=== PATIENT | male | born 1960 | race Caucasian/White ===

== ENCOUNTER 2017-08-01 09:52 | Inpatient (IN) | payer MEDICARE, MEDICAID ==
[~2017-08-01] VITALS: Ht 185.4 cm; Wt 74.8 kg
[~2017-08-01 09:52] MED LIST: CEPH-571 PO; DOXY100C43 PO; HYDR-569 PO; NO HOME MEDS
[2017-08-01] MEDS ORDERED: normal saline 1000ML IV soln IV ONE (10:30)
[2017-08-01] MEDS ORDERED: cefTRIAXone 1g/NS 100ml IVPB 100 ML IV ONE (10:35)
[2017-08-01] MEDS ORDERED: vancomycin/NS 1 GM ADD-VANTAGE 250 ML IV ONE (10:45)
[2017-08-01 11:32] LABS: BASOPHILS % (AUTO) 0.4 % (0-1); EOSINOPHILS # (AUTO) 0.1 X10'3 (0-0.9); EOSINOPHILS % (AUTO) 1.7 % (0-6); HEMATOCRIT 43.2 % (42.0-52.0); HEMOGLOBIN 15.1 g/dl (14.0-17.9); LYMPHOCYTES # (AUTO) 1.5 X10'3 (1.1-4.8); MEAN CORPUSCULAR HEMOGLOBIN 32.3 PG (27.0-31.0); MEAN CORPUSCULAR HGB CONC 34.9 % (33.0-36.5); MEAN CORPUSCULAR VOLUME 92.6 FL (78-98); MEAN PLATELET VOLUME 7.1 FL (7.4-10.4); MONOCYTES # (AUTO) 0.6 X10'3 (0-0.9); MONOCYTES % (AUTO) 9.9 % (2-12); NEUTROPHILS # (AUTO) 3.8 X10'3 (1.8-7.7); PLATELET COUNT 310 X10'3 (140-440); RED BLOOD COUNT 4.67 X10'6 (4.70-6.10); RED CELL DISTRIBUTION WIDTH 13.3 % (11.5-14.5)
[2017-08-01 11:33] LABS: CLARITY,URINE Clear (Clear); COLOR,URINE Yellow (Yellow); GLUCOSE, URINE Negative (Neg); KETONES,URINE Negative (Neg); LEUKOCYTE ESTERASE ,URINE Negative (Neg); NITRITES, URINE Negative (Neg); OCCULT BLOOD,URINE Negative (Neg); PROTEIN,URINE Negative (Neg)
[2017-08-01 11:34] LABS: UA COLLECTION TYPE CLN CATCH MIDSTREAM
[2017-08-01 11:44] LABS: INR 0.9 INR; PARTIAL THROMBOPLASTIN TIME 28 SECONDS (22-32); PROTHROMBIN TIME 9.8 SECONDS (9.0-12.0)
[2017-08-01 11:47] LABS: ALANINE AMINOTRANSFERASE 32 U/L (12-78); ALBUMIN 3.3 G/DL (3.4-5.0); ALBUMIN/GLOBULIN RATIO 0.7 (1.1-1.5); ALKALINE PHOSPHATASE 96 IU/L (46-116); ANION GAP 13 (8-16); ASPARTATE AMINO TRANSFERASE 24 U/L (10-37); BILIRUBIN,TOTAL 0.3 MG/DL (0.1-1.0); BLOOD UREA NITROGEN 11 MG/DL (7-18); BUN/CREATININE RATIO 13.8 (5.4-32.0); CALCIUM 8.9 MG/DL (8.5-10.1); CHLORIDE 102 MMOL/L (99-107); GLUCOSE 100 MG/DL (70-104); MAGNESIUM 1.6 MG/DL (1.5-2.4); SODIUM 141 MMOL/L (135-145); TOTAL CARBON DIOXIDE 26.4 MMOL/L (24-32); TOTAL PROTEIN 7.9 G/DL (6.4-8.2); eGFR > 90 ML/MIN
[2017-08-01] MEDS ORDERED: morphine 2 MG/ML inj. syringe IV PRN (12:50)
[2017-08-01] MEDS ORDERED: magnesium hydroxide 30ml (MOM) UD suspension PO PRN (12:50)
[2017-08-01] MEDS ORDERED: ondansetron/PF 4mg/2ml inj IV PRN (12:50)
[2017-08-01] MEDS ORDERED: acetaminophen 325mg tablet PO PRN (12:50)
[2017-08-01] MEDS ORDERED: mag hydrox/Alum hydrox/simeth 30ml oral suspension PO PRN (12:50)
[2017-08-01] MEDS: normal saline 1000ml 1,000 ML IV SCH ×2 (13:01→23:56)
[2017-08-01 14:10] VITALS: BP 134/79
[2017-08-01] MEDS: morphine 2 MG/ML inj. syringe IV PRN ×2 (14:30→19:13)
[2017-08-01] MEDS ORDERED: famotidine 20mg tablet PO ONE (16:10)
[2017-08-01] MEDS: nicotine 14mg patch - 24hr TD SCH (16:34)
[2017-08-01] MEDS: HYDROcodone/acetaminophen 5mg/325mg tablet PO PRN (16:34)
[2017-08-01 18:00] VITALS: BP 130/82
[2017-08-01] MEDS ORDERED: pneumococcal 23-VAL P-sac vacc 25 mcg/0.5ml vial IMVAC ONE (18:15)
[2017-08-01] MEDS: vancomycin/NS 1 GM ADD-VANTAGE 250 ML IV SCH (19:13)
[2017-08-01 22:00] VITALS: BP 108/67
[2017-08-02] VITALS (11 sets, daily range): BP systolic 119–154; BP diastolic 71–98
[2017-08-02] MEDS: vancomycin/NS 1 GM ADD-VANTAGE 250 ML IV SCH ×2 (02:59→11:40)
[2017-08-02] MEDS: HYDROcodone/acetaminophen 5mg/325mg tablet PO PRN (05:55)
[2017-08-02] MEDS ORDERED: vancomycin 1,000mg inj ONE (07:32)
[2017-08-02] MEDS ORDERED: BUPIVAcaine/PF 2.5 mg/ml (0.25%) 30ml vial ONE (07:32)
[2017-08-02 07:37] LABS: BASOPHILS % (AUTO) 0.5 % (0-1); EOSINOPHILS # (AUTO) 0.2 X10'3 (0-0.9); EOSINOPHILS % (AUTO) 3.5 % (0-6); HEMATOCRIT 39.3 % (42.0-52.0); HEMOGLOBIN 13.6 g/dl (14.0-17.9); LYMPHOCYTES # (AUTO) 1.6 X10'3 (1.1-4.8); LYMPHOCYTES % (AUTO) 25.3 % (21-51); MEAN CORPUSCULAR HEMOGLOBIN 32.3 PG (27.0-31.0); MEAN CORPUSCULAR HGB CONC 34.7 % (33.0-36.5); MEAN CORPUSCULAR VOLUME 93.2 FL (78-98); MEAN PLATELET VOLUME 6.9 FL (7.4-10.4); MONOCYTES # (AUTO) 0.6 X10'3 (0-0.9); MONOCYTES % (AUTO) 10.2 % (2-12); NEUTROPHILS # (AUTO) 3.7 X10'3 (1.8-7.7); NEUTROPHILS % (AUTO) 60.5 % (42-75); PLATELET COUNT 298 X10'3 (140-440); RED BLOOD COUNT 4.22 X10'6 (4.70-6.10); RED CELL DISTRIBUTION WIDTH 13.2 % (11.5-14.5); WHITE BLOOD COUNT 6.2 X10'3 (4.5-11.0)
[2017-08-02] MEDS: nicotine 14mg patch - 24hr TD SCH (07:40)
[2017-08-02 07:53] LABS: ALBUMIN 2.7 G/DL (3.4-5.0); ANION GAP 9 (8-16); BLOOD UREA NITROGEN 8 MG/DL (7-18); BUN/CREATININE RATIO 9.4 (5.4-32.0); CALCIUM 8.2 MG/DL (8.5-10.1); CHLORIDE 105 MMOL/L (99-107); CREATININE 0.85 MG/DL (0.60-1.10); GLUCOSE 99 MG/DL (70-104); POTASSIUM 3.8 MMOL/L (3.5-5.1); SODIUM 140 MMOL/L (135-145); eGFR > 90 ML/MIN
[2017-08-02] MEDS ORDERED: meperidine/PF 50mg/ml syringe IV PRN ×3 (09:00)
[2017-08-02] MEDS ORDERED: morphine 2 MG/ML inj. syringe IV PRN ×2 (09:00)
[2017-08-02] MEDS ORDERED: proCHLORperazine 10 MG/2 ml inj IV PRN (09:00)
[2017-08-02] MEDS ORDERED: ondansetron/PF 4mg/2ml inj IV PRN (09:00)
[2017-08-02] MEDS ORDERED: ringers solution, lacted 1,000 ML IV SCH (09:00)
[2017-08-02] MEDS ORDERED: fentaNYL/PF 50MCG/1 ML 2ML syringe ONE (09:05)
[2017-08-02] MEDS ORDERED: midazolam 2 mg/2 ml injection ONE (09:09)
[2017-08-02] MEDS ORDERED: LIDOcaine 2% (20mg/ml) 5ml vial ONE (09:12)
[2017-08-02] MEDS ORDERED: propofol inj 20 ML IV ONE (09:12)
[2017-08-02] MEDS ORDERED: ondansetron/PF 4mg/2ml inj ONE (09:21)
[2017-08-02] MEDS ORDERED: dexamethasone sod phosphate 4mg/ml inj. ONE (09:21)
[2017-08-02] MEDS ORDERED: VANCOMYCIN LEVEL IV NR (10:30)
[2017-08-02] MEDS: normal saline 1000ml 1,000 ML IV SCH (10:45)
[2017-08-02] MEDS ORDERED: lactobacillus rhamnosus 10,000 MMU CELLS/CAPSULE PO SCH (17:30)
[2017-08-02] MEDS ORDERED: vancomycin inj 1,250 MG in normal saline 250ml IV soln 250 ML IV SCH (19:00)
[2017-08-03] MEDS ORDERED: VANCOMYCIN LEVEL IV NR (18:30)
[2017-08-04] MEDS ORDERED: pneumococcal 23-VAL P-sac vacc 25 mcg/0.5ml vial IMVAC ONE (10:00)
== END 2017-08-02 14:45 | disposition left against medical advice (07) | DRG 854 ==
LOC: ER 09:53 → ED HOLD 12:49 → EDBEDREQ 13:48 → ORTHO 4S 14:08
PROVIDERS: ADMIT Family Medicine; ATTEND Family Medicine
PROC: 0X9K0ZZ Drainage of Left Hand, Open Approach (ICD-10-PCS; 2017-08-02)
PROC: 0LD80ZZ Extraction of Left Hand Tendon, Open Approach (ICD-10-PCS; principal; 2017-08-02 08:58)
DX: A41.9 Sepsis, unspecified organism (principal); L03.114 Cellulitis of left upper limb; E78.00 Pure hypercholesterolemia, unspecified; L02.512 Cutaneous abscess of left hand; R65.20 Severe sepsis without septic shock; M65.842 Other synovitis and tenosynovitis, left hand; G89.29 Other chronic pain; M54.9 Dorsalgia, unspecified; Z53.21 Procedure and treatment not carried out due to patient leaving prior to being seen by health care provider; F17.210 Nicotine dependence, cigarettes, uncomplicated; Z79.4 Long term (current) use of insulin; Z83.3 Family history of diabetes mellitus; Z91.19 Patient's noncompliance with other medical treatment and regimen; Z88.2 Allergy status to sulfonamides; Z88.1 Allergy status to other antibiotic agents; Z88.8 Allergy status to other drugs, medicaments and biological substances
CPT/HCPCS: 36415; 80048; 80053; 80202; 81003; 83605; 83735; 84145; 85025; 85610; 85730; 87040; 87070; 93005; 96361; 96365; 96366; 96368; 99285; A6222; A6446; A6449; A7000; J0696; J1100; J2001; J2250; J2270; J2405; J2704; J3010; J3370; J3490; J7030; J7120

== ENCOUNTER 2017-10-31 11:34 | Emergency (ER) | payer MEDICARE, MEDICAID ==
[~2017-10-31] VITALS: Ht 182.9 cm; Wt 73.0 kg
[~2017-10-31 11:34] MED LIST changes: -DOXY100C43 PO
[2017-10-31 12:10] VITALS: BP 138/85
[2017-10-31] MEDS ORDERED: SULF1TAB49 PO (12:57)
[2017-10-31] MEDS ORDERED: HYDR-3965 PO (12:57)
[2017-10-31] MEDS ORDERED: MUPI22OI30 TOP (12:57)
== END 2017-10-31 13:24 | disposition home or self-care (01) ==
LOC: ER 11:35
DX: L02.416 Cutaneous abscess of left lower limb (principal); G89.29 Other chronic pain; Z88.8 Allergy status to other drugs, medicaments and biological substances; Z79.899 Other long term (current) drug therapy
CPT/HCPCS: 99283; 99284

== ENCOUNTER 2018-05-26 13:51 | Emergency (ER) | payer MEDICAID, MEDICARE ==
[~2018-05-26] VITALS: Ht 182.9 cm; Wt 82.0 kg
[~2018-05-26 13:51] MED LIST changes: +HYDR-4383 PO; -HYDR-569 PO
[2018-05-26 13:53] VITALS: BP 128/88
== END 2018-05-26 17:14 | disposition left against medical advice (07) ==
LOC: ER 13:52
DX: L02.413 Cutaneous abscess of right upper limb (principal); Z53.21 Procedure and treatment not carried out due to patient leaving prior to being seen by health care provider

== ENCOUNTER 2018-11-23 15:18 | Emergency (ER) | payer MEDICARE ==
[~2018-11-23] VITALS: Ht 182.9 cm; Wt 81.8 kg
[2018-11-23] MEDS ORDERED: normal saline 1000ML IV soln IVB ONE (15:35)
[2018-11-23 15:51] LABS: BASOPHILS # (AUTO) 0.1 X10'3 (0-0.2); BASOPHILS % (AUTO) 1.1 % (0-1); EOSINOPHILS # (AUTO) 0.2 X10'3 (0-0.9); EOSINOPHILS % (AUTO) 2.6 % (0-6); HEMATOCRIT 47.2 % (42.0-52.0); HEMOGLOBIN 16.1 g/dl (14.0-17.9); LYMPHOCYTES # (AUTO) 2.4 X10'3 (1.1-4.8); LYMPHOCYTES % (AUTO) 27.8 % (21-51); MEAN CORPUSCULAR HGB CONC 34.1 g/dL (33.0-36.5); MEAN CORPUSCULAR VOLUME 93.9 FL (78-98); MEAN PLATELET VOLUME 7.1 FL (7.4-10.4); MONOCYTES # (AUTO) 0.8 X10'3 (0-0.9); MONOCYTES % (AUTO) 9.7 % (2-12); NEUTROPHILS % (AUTO) 58.8 % (42-75); PLATELET COUNT 309 X10'3 (140-440); RED BLOOD COUNT 5.03 X10'6 (4.70-6.10); RED CELL DISTRIBUTION WIDTH 13.1 % (11.5-14.5); WHITE BLOOD COUNT 8.5 X10'3 (4.5-11.0)
[2018-11-23 16:09] LABS: ALANINE AMINOTRANSFERASE 75 U/L (12-78); ALBUMIN 4.1 G/DL (3.4-5.0); ALBUMIN/GLOBULIN RATIO 0.9 (1.1-1.5); ALKALINE PHOSPHATASE 121 IU/L (46-116); ANION GAP 12 (8-16); ASPARTATE AMINO TRANSFERASE 53 U/L (10-37); BILIRUBIN,TOTAL 0.4 MG/DL (0.1-1.0); BLOOD UREA NITROGEN 18 MG/DL (7-18); BUN/CREATININE RATIO 15.8 (5.4-32.0); CALCIUM 9.2 MG/DL (8.5-10.1); CHLORIDE 104 MMOL/L (99-107); CREATINE KINASE 151 U/L (39-308); CREATININE 1.14 MG/DL (0.60-1.10); GLUCOSE 69 MG/DL (70-104); POTASSIUM 3.8 MMOL/L (3.5-5.1); SODIUM 139 MMOL/L (135-145); TOTAL CARBON DIOXIDE 22.6 MMOL/L (24-32); TOTAL PROTEIN 8.6 G/DL (6.4-8.2); eGFR 66 ML/MIN
[2018-11-23 16:41] VITALS: BP 107/67
[2018-11-24] MEDS ORDERED: ASPI-1265 PO (13:49)
== END 2018-11-23 16:42 ==
LOC: ER 15:18
DX: G40.909 Epilepsy, unspecified, not intractable, without status epilepticus (principal); K21.9 Gastro-esophageal reflux disease without esophagitis; Z76.5 Malingerer [conscious simulation]; G89.29 Other chronic pain; Z86.14 Personal history of Methicillin resistant Staphylococcus aureus infection; Z88.1 Allergy status to other antibiotic agents; Z88.8 Allergy status to other drugs, medicaments and biological substances
CPT/HCPCS: 36415; 80053; 82550; 85025; 99283; J7030

== ENCOUNTER 2018-11-24 12:51 | Inpatient (IN) | payer MEDICARE, OTHER ==
[~2018-11-24] VITALS: Ht 185.4 cm; Wt 79.5 kg
--- NOTE | 2018-11-24 13:15 | NUR ---
PT TO CT VIA [facility]
[2018-11-24 13:19] LABS: BASOPHILS # (AUTO) 0.1 X10'3 (0-0.2); BASOPHILS % (AUTO) 1.2 % (0-1); EOSINOPHILS # (AUTO) 0.2 X10'3 (0-0.9); EOSINOPHILS % (AUTO) 2.9 % (0-6); HEMATOCRIT 45.6 % (42.0-52.0); HEMOGLOBIN 15.7 g/dl (14.0-17.9); LYMPHOCYTES # (AUTO) 1.7 X10'3 (1.1-4.8); LYMPHOCYTES % (AUTO) 25.2 % (21-51); MEAN CORPUSCULAR HGB CONC 34.4 g/dL (33.0-36.5); MEAN CORPUSCULAR VOLUME 93.1 FL (78-98); MEAN PLATELET VOLUME 7.2 FL (7.4-10.4); MONOCYTES # (AUTO) 0.7 X10'3 (0-0.9); MONOCYTES % (AUTO) 10.9 % (2-12); NEUTROPHILS # (AUTO) 4.1 X10'3 (1.8-7.7); NEUTROPHILS % (AUTO) 59.8 % (42-75); PLATELET COUNT 303 X10'3 (140-440); RED BLOOD COUNT 4.89 X10'6 (4.70-6.10); RED CELL DISTRIBUTION WIDTH 12.8 % (11.5-14.5); WHITE BLOOD COUNT 6.8 X10'3 (4.5-11.0)
--- NOTE | 2018-11-24 13:21 | NUR ---
PT BACK FROM CT [facility]IA [facility]
[2018-11-24 13:27] LABS: PARTIAL THROMBOPLASTIN TIME 30 SECONDS (22-32)
[2018-11-24 13:29] LABS: ALANINE AMINOTRANSFERASE 69 U/L (12-78); ALBUMIN 3.5 G/DL (3.4-5.0); ALBUMIN/GLOBULIN RATIO 0.8 (1.1-1.5); ALKALINE PHOSPHATASE 113 IU/L (46-116); ANION GAP 7 (8-16); ASPARTATE AMINO TRANSFERASE 44 U/L (10-37); BILIRUBIN,TOTAL 0.5 MG/DL (0.1-1.0); BLOOD UREA NITROGEN 20 MG/DL (7-18); BUN/CREATININE RATIO 22.5 (5.4-32.0); CALCIUM 8.8 MG/DL (8.5-10.1); CHLORIDE 102 MMOL/L (99-107); CREATININE 0.89 MG/DL (0.60-1.10); GLUCOSE 92 MG/DL (70-104); POTASSIUM 4.1 MMOL/L (3.5-5.1); SODIUM 135 MMOL/L (135-145); TOTAL CARBON DIOXIDE 25.8 MMOL/L (24-32); TOTAL PROTEIN 7.7 G/DL (6.4-8.2); eGFR 87 ML/MIN
[2018-11-24 13:33] LABS: TROPONIN I < 0.04 NG/ML (0.0-0.05)
[2018-11-24] MEDS ORDERED: ASPI-1265 PO (13:49)
[2018-11-24] MEDS ORDERED: acetaminophen 325mg tablet PO PRN (15:15)
[2018-11-24] MEDS ORDERED: potassium Cl 40MEQ/NS 500ml 500 ML IV PRN (15:15)
[2018-11-24] MEDS ORDERED: potassium CL 10mEq/100ml bag 100 ML IV PRN (15:15)
[2018-11-24] MEDS ORDERED: magnesium Cl slow-release 64mg tablet PO PRN (15:15)
[2018-11-24] MEDS ORDERED: magnesium hydroxide 30ml (MOM) UD suspension PO PRN (15:15)
[2018-11-24] MEDS ORDERED: potassium Cl 20 mEq SR tablet PO PRN ×2 (15:15)
[2018-11-24] MEDS ORDERED: mag hydrox/Alum hydrox/simeth 30ml oral suspension PO PRN (15:15)
[2018-11-24] MEDS ORDERED: magnesium 4gm in 100ml NS 100 ML IV PRN (15:15)
[2018-11-24] MEDS ORDERED: magnesium 2GM in 50ml NS 50 ML IV PRN (15:15)
[2018-11-24] MEDS ORDERED: ondansetron/PF 4mg/2ml inj IV PRN (15:15)
[2018-11-24] MEDS ORDERED: bisacodyl 10mg suppository rectal RC PRN (15:15)
[2018-11-24] MEDS: aspirin 81mg tab.chew PO SCH (15:17)
[2018-11-24] MEDS ORDERED: levetiracetam 250mg tablet PO SCH (15:35)
[2018-11-24] MEDS ORDERED: LORazepam 2 mg/ml vial IV PRN (15:35)
--- NOTE | 2018-11-24 16:15 | NUR ---
I have received report from NORMA Carreon in ED and had the opportunity to ask questions and assume patient care.
[2018-11-24 16:29] VITALS: BP 136/86
[2018-11-24] MEDS: atorvastatin 20mg tablet PO SCH (16:53)
[2018-11-24] MEDS: potassium Cl 20mEq in NS 1,000 ML IV SCH (16:53)
[2018-11-24] MEDS: clopidogrel 75mg tablet PO SCH (16:53)
[2018-11-24 16:57] LABS: CREATINE KINASE 114 U/L (39-308)
[2018-11-24 19:00] VITALS: BP 120/74
--- NOTE | 2018-11-24 19:03 | NUR ---
Problems reprioritized. Patient report given, questions answered & plan of care reviewed with NORMA Blackwood.
[2018-11-24] MEDS: docusate sod 100mg capsule PO SCH (20:00)
[2018-11-24] MEDS: levetiracetam 250mg tablet PO SCH (21:18)
[2018-11-24 22:00] VITALS: BP 117/78
[2018-11-25 02:00] VITALS: BP 130/82
[2018-11-25] MEDS: potassium Cl 20mEq in NS 1,000 ML IV SCH (04:37)
[2018-11-25 06:10] VITALS: BP 122/89
[2018-11-25 06:14] LABS: ALANINE AMINOTRANSFERASE 66 U/L (12-78); ALBUMIN 3.2 G/DL (3.4-5.0); ALBUMIN/GLOBULIN RATIO 0.8 (1.1-1.5); ALKALINE PHOSPHATASE 108 IU/L (46-116); ANION GAP 8 (8-16); ASPARTATE AMINO TRANSFERASE 43 U/L (10-37); BILIRUBIN,TOTAL 0.3 MG/DL (0.1-1.0); BLOOD UREA NITROGEN 21 MG/DL (7-18); BUN/CREATININE RATIO 26.6 (5.4-32.0); CALCIUM 8.7 MG/DL (8.5-10.1); CHLORIDE 103 MMOL/L (99-107); CHOL/HDL RATIO 2.8 (0.00-4.99); CHOLESTEROL 119 MG/DL (0-200); CREATININE 0.79 MG/DL (0.60-1.10); GLUCOSE 100 MG/DL (70-104); HDL CHOLESTEROL 42 MG/DL (35-60); LDL CHOLESTEROL 68 MG/DL (50-100); MAGNESIUM 1.8 MG/DL (1.5-2.4); SODIUM 137 MMOL/L (135-145); TOTAL CARBON DIOXIDE 25.9 MMOL/L (24-32); TOTAL PROTEIN 7.3 G/DL (6.4-8.2); TRIGLYCERIDES 90 MG/DL (20-135); eGFR > 90 ML/MIN
--- NOTE | 2018-11-25 06:40 | NUR ---
I have received patient report from Merced GREEN
[2018-11-25 07:23] LABS: BASOPHILS # (AUTO) 0.1 X10'3 (0-0.2); EOSINOPHILS # (AUTO) 0.3 X10'3 (0-0.9); EOSINOPHILS % (AUTO) 3.5 % (0-6); HEMATOCRIT 49.8 % (42.0-52.0); HEMOGLOBIN 17.1 g/dl (14.0-17.9); LYMPHOCYTES # (AUTO) 2.1 X10'3 (1.1-4.8); LYMPHOCYTES % (AUTO) 27.5 % (21-51); MEAN CORPUSCULAR HEMOGLOBIN 32.1 PG (27.0-31.0); MEAN CORPUSCULAR HGB CONC 34.2 g/dL (33.0-36.5); MEAN CORPUSCULAR VOLUME 93.9 FL (78-98); MEAN PLATELET VOLUME 7.5 FL (7.4-10.4); MONOCYTES # (AUTO) 0.9 X10'3 (0-0.9); MONOCYTES % (AUTO) 12.2 % (2-12); NEUTROPHILS # (AUTO) 4.2 X10'3 (1.8-7.7); NEUTROPHILS % (AUTO) 55.8 % (42-75); PLATELET COUNT 306 X10'3 (140-440); RED BLOOD COUNT 5.31 X10'6 (4.70-6.10); RED CELL DISTRIBUTION WIDTH 13.5 % (11.5-14.5); WHITE BLOOD COUNT 7.6 X10'3 (4.5-11.0)
[2018-11-25] MEDS ORDERED: pantoprazole 40mg Tablet.DR PO SCH (07:30)
[2018-11-25] MEDS ORDERED: enoxaparin 40mg/0.4ml syringe SUBCUT SCH (08:00)
[2018-11-25] MEDS ORDERED: K and/or MAG REPLACEMENT MC SCH (08:00)
[2018-11-25] MEDS: aspirin 81mg tab.chew PO SCH (08:01)
[2018-11-25] MEDS: atorvastatin 20mg tablet PO SCH (08:02)
[2018-11-25] MEDS: docusate sod 100mg capsule PO SCH (08:02)
[2018-11-25] MEDS: levetiracetam 250mg tablet PO SCH (08:02)
[2018-11-25] MEDS: clopidogrel 75mg tablet PO SCH (08:04)
[2018-11-25 10:00] VITALS: BP 139/87
[2018-11-25] MEDS ORDERED: pneumococcal 23-VAL P-sac vacc 25 mcg/0.5ml vial IMVAC ONE (10:00)
--- NOTE | 2018-11-25 11:31 | NUR ---
Patient said he felt short of breath. I checked patients 02 sat it was 99% on room air. Patient lungs are clear/diminished. He doesn't appear to be in distress, he denies and chest pain or pressure. I will monitor.
[2018-11-25 14:00] VITALS: BP 130/91
--- NOTE | 2018-11-25 15:35 | NUR ---
Malnutrition consult: Pt has gained wt since last admit in July, no significant edema or weakness noted. PO 50% first heart healthy meals this admit. At this time pt does not qualify for malnutrition. Addendum: 11/25/18 at [address] Amended: Links added.
[2018-11-25 16:05] VITALS: BP 136/86
[2018-11-25] MEDS ORDERED: LEVE250T PO (16:33)
[2018-11-25] MEDS ORDERED: CLOP75TA35 PO (16:33)
[2018-11-25] MEDS ORDERED: ATOR20TA66 PO (16:33)
[2018-11-25] MEDS ORDERED: KEP500T PO (16:38)
--- NOTE | 2018-11-25 17:50 | NUR ---
Patient discharged back to skilled nursing at this time. Medications and follow up lab explained to patient and guards.
[2018-11-26] MEDS ORDERED: iohexol 350MG/ML 100ml bottle IV ONE (11:51)
== END 2018-11-25 17:45 | DRG 66 ==
LOC: ER 12:51 → EEVIPCON 12:51 → ORTHO 4S 15:16 → CMPBEDREQ 19:38
PROVIDERS: ADMIT Internal Medicine; ATTEND Internal Medicine
PROC: 4A10X4Z Monitoring of Central Nervous Electrical Activity, External Approach (ICD-10-PCS; principal; 2018-11-24)
PROC: BW38YZZ Magnetic Resonance Imaging (MRI) of Head using Other Contrast (ICD-10-PCS; 2018-11-25)
DX: I63.9 Cerebral infarction, unspecified (principal); G40.909 Epilepsy, unspecified, not intractable, without status epilepticus; I25.10 Atherosclerotic heart disease of native coronary artery without angina pectoris; K21.9 Gastro-esophageal reflux disease without esophagitis; G89.29 Other chronic pain; M54.9 Dorsalgia, unspecified; Z60.2 Problems related to living alone; F17.210 Nicotine dependence, cigarettes, uncomplicated; Z79.82 Long term (current) use of aspirin; I25.2 Old myocardial infarction; Z79.899 Other long term (current) drug therapy; Z88.1 Allergy status to other antibiotic agents; Z88.2 Allergy status to sulfonamides; Z86.14 Personal history of Methicillin resistant Staphylococcus aureus infection; Z87.01 Personal history of pneumonia (recurrent); Z83.3 Family history of diabetes mellitus
CPT/HCPCS: 36415; 70450; 70544; 70551; 71045; 80053; 80061; 82550; 83735; 84484; 85025; 85610; 85651; 85730; 87070; 92508; 92616; 93005; 93306; 93880; 95816; 97116; 97162; 97530; 99285; G0378; J1650; Q9967

== ENCOUNTER 2018-11-25 19:14 | Observation (INO) | payer OTHER ==
[~2018-11-25] VITALS: Ht 182.9 cm; Wt 81.8 kg
[~2018-11-25 19:14] MED LIST changes: +ASPI-1265 PO; +ATOR20TA66 PO; -CEPH-571 PO; +CLOP75TA35 PO; -HYDR-4383 PO; +KEP500T PO; +LEVE250T PO; -NO HOME MEDS
[2018-11-25 19:34] LABS: BASOPHILS % (AUTO) 0.8 % (0-1); EOSINOPHILS # (AUTO) 0.2 X10'3 (0-0.9); EOSINOPHILS % (AUTO) 3.9 % (0-6); HEMATOCRIT 45.6 % (42.0-52.0); HEMOGLOBIN 15.5 g/dl (14.0-17.9); LYMPHOCYTES # (AUTO) 1.7 X10'3 (1.1-4.8); LYMPHOCYTES % (AUTO) 27.7 % (21-51); MEAN CORPUSCULAR HEMOGLOBIN 31.9 PG (27.0-31.0); MEAN PLATELET VOLUME 7.4 FL (7.4-10.4); MONOCYTES # (AUTO) 0.8 X10'3 (0-0.9); MONOCYTES % (AUTO) 12.8 % (2-12); NEUTROPHILS # (AUTO) 3.3 X10'3 (1.8-7.7); NEUTROPHILS % (AUTO) 54.8 % (42-75); PLATELET COUNT 278 X10'3 (140-440); RED BLOOD COUNT 4.85 X10'6 (4.70-6.10); RED CELL DISTRIBUTION WIDTH 13.2 % (11.5-14.5); WHITE BLOOD COUNT 6.1 X10'3 (4.5-11.0)
[2018-11-25 19:43] LABS: PARTIAL THROMBOPLASTIN TIME 29 SECONDS (22-32)
[2018-11-25 19:45] LABS: ALANINE AMINOTRANSFERASE 61 U/L (12-78); ALBUMIN 3.3 G/DL (3.4-5.0); ALBUMIN/GLOBULIN RATIO 0.8 (1.1-1.5); ALKALINE PHOSPHATASE 112 IU/L (46-116); ANION GAP 4 (8-16); ASPARTATE AMINO TRANSFERASE 39 U/L (10-37); BILIRUBIN,TOTAL 0.3 MG/DL (0.1-1.0); BLOOD UREA NITROGEN 16 MG/DL (7-18); CALCIUM 8.6 MG/DL (8.5-10.1); CHLORIDE 104 MMOL/L (99-107); CREATININE 0.84 MG/DL (0.60-1.10); GLUCOSE 103 MG/DL (70-104); POTASSIUM 3.9 MMOL/L (3.5-5.1); SODIUM 134 MMOL/L (135-145); TOTAL CARBON DIOXIDE 25.6 MMOL/L (24-32); TOTAL PROTEIN 7.5 G/DL (6.4-8.2); eGFR > 90 ML/MIN
[2018-11-25 19:48] LABS: TROPONIN I < 0.04 NG/ML (0.0-0.05)
[2018-11-25] MEDS ORDERED: aspirin 325mg tablet PO ONE (20:45)
--- NOTE | 2018-11-25 21:17 | NUR ---
Pt symptoms of left sided weakness improving. 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 Pt now able to perform finger to nose test. Feather Baler strength still not WNL, but improving. Pt now able to lift LLE. Pt reports headache now 2/10.
[2018-11-25] MEDS ORDERED: acetaminophen 325mg tablet PO PRN (21:50)
[2018-11-25] MEDS ORDERED: ondansetron/PF 4mg/2ml inj IV PRN (21:50)
[2018-11-25] MEDS ORDERED: magnesium hydroxide 30ml (MOM) UD suspension PO PRN (21:50)
[2018-11-25] MEDS ORDERED: mag hydrox/Alum hydrox/simeth 30ml oral suspension PO PRN (21:50)
--- NOTE | 2018-11-25 22:00 | NUR ---
Patient in room [facility] 4015. I have received report from NORMA Cabello and had the opportunity to ask questions and assume patient care.
[2018-11-25 23:08] VITALS: BP 143/94
[2018-11-26 02:00] VITALS: BP 161/93
--- NOTE | 2018-11-26 06:19 | NUR ---
Problems reprioritized. Patient report given, questions answered & plan of care reviewed with NORMA Hoover.
[2018-11-26 06:47] VITALS: BP 125/77
[2018-11-26 08:00] VITALS: BP 136/93
[2018-11-26] MEDS ORDERED: clopidogrel 75mg tablet PO SCH (08:00)
[2018-11-26] MEDS ORDERED: heparin, porcine 5000 units/ml vial SQ SCH (08:00)
[2018-11-26] MEDS ORDERED: levetiracetam 250mg tablet PO SCH (08:00)
[2018-11-26] MEDS ORDERED: atorvastatin 20mg tablet PO SCH (08:00)
[2018-11-26] MEDS ORDERED: aspirin 81mg tab.chew PO SCH (08:00)
[2018-11-26 10:00] VITALS: BP 131/76
--- NOTE | 2018-11-26 12:54 | NUR ---
Malnutrition consult: Pt currently on a regular diet pending documented PO intake. Pt previously admitted with documented 100% PO intake 11/25 meeting nutrient needs. Pt has gained wt since last admit in July. Pt with no documented edema or significant decrease in muscle strength. Pt currently does not meet criteria for malnutrition. Will continue to follow. Addendum: 11/26/18 at [address] Amended: Links added.
--- NOTE | 2018-11-26 13:26 | NUR ---
PAGER ID: [phone] MESSAGE: Sneha [id number] re [id number] Lester Pearson. CTA results are available. Pt is eager to leave. No new deficits, vss Addendum: 11/26/18 at 1329 by Barby Allen RN spoke to he will be up to the floor shortly
[2018-11-26 14:00] VITALS: BP 114/74
== END 2018-11-26 15:35 ==
LOC: ER 19:15 → EEVIPCON 19:15 → ORTHO 4S 22:08 → CMPBEDREQ 22:33
PROVIDERS: ADMIT Internal Medicine; ATTEND Internal Medicine
DX: I25.10 Atherosclerotic heart disease of native coronary artery without angina pectoris (principal); F41.0 Panic disorder [episodic paroxysmal anxiety]; K21.9 Gastro-esophageal reflux disease without esophagitis; M54.9 Dorsalgia, unspecified; G89.29 Other chronic pain; I25.2 Old myocardial infarction; Z79.82 Long term (current) use of aspirin; Z88.1 Allergy status to other antibiotic agents; Z79.02 Long term (current) use of antithrombotics/antiplatelets
CPT/HCPCS: 36415; 70450; 70496; 70498; 71045; 80053; 84484; 85025; 85610; 85730; 87070; 93005; 96372; 99284; G0378; J1644

== ENCOUNTER 2020-05-27 10:15 | Emergency (ER) | payer BC, MEDICAID ==
[~2020-05-27] VITALS: Ht 185.4 cm; Wt 180.0 kg
[~2020-05-27 10:15] MED LIST changes: -LEVE250T PO
--- NOTE | 2020-05-27 11:28 | NUR ---
' PER SCREENER, PT LWOBS. PT WAS ASKED TO WAIT A MINUTE FOR CHG RN TO BE NOTIFIED BUT PTS STATED TO SCREENER THAT HE WAS "GOING HOME TO ". EARLIER PT WAS FOUND LYING ON THE FLOOR AND ASKED BY STAFF TO NOT LIE ON THE FLOOR. CHG RN NOTIFIED AND ATTEMPTED TO CALL PT, NOTIFY HIM THAT HE WAS JUST GOING TO BE CALLED BACK TO ER ROOM TO BE SEEN, THERE WAS NOT ANSWER TO THE PHONE AND UNABLE TO LEAVE A MSG ON PHONE # LISTED IN HIS CHART
== END 2020-05-27 11:34 | disposition left against medical advice (07) ==
LOC: ER 10:16
DX: R07.0 Pain in throat (principal); Z53.21 Procedure and treatment not carried out due to patient leaving prior to being seen by health care provider

== ENCOUNTER 2022-03-01 12:19 | Emergency (ER) | payer BC, MEDICAID ==
[~2022-03-01] VITALS: Ht 185.4 cm; Wt 86.0 kg
[~2022-03-01 12:19] MED LIST changes: +CLOP75TA34 PO; -CLOP75TA35 PO
--- NOTE | 2022-03-01 12:40 | NUR ---
Went to lobby to examine and wrap finger. L pinky finger with laceration/parial amputation. Small amount of bleeding. 4x4's placed and finger wrapped with coban.
[2022-03-01 12:45] VITALS: BP 127/88
[2022-03-01] MEDS ORDERED: HYDROcodone/acetaminophen 5mg/325mg tablet PO ONE (13:15)
[2022-03-01] MEDS ORDERED: LIDOcaine 1% 30ml preserv. free vial SQ STA (13:42)
[2022-03-01] MEDS ORDERED: tetanus & diphtheria toxoid (Td) vaccine 0.5ml IMVAC ONE (14:05)
[2022-03-01] MEDS ORDERED: TETanus/Pertussis (Acell)/Diphther VAC/PF (Tdap-Adult) 0.5ml syringe IMVAC ONE (14:15)
[2022-03-01] MEDS ORDERED: cephalexin 250mg capsule PO ONE (15:20)
[2022-03-01] MEDS ORDERED: CEPH-585 PO ×2 (16:37→18:06)
[2022-03-01] MEDS ORDERED: HYDR-3972 PO (16:37)
--- NOTE | 2022-03-01 16:53 | NUR ---
SUTURES INTACT TO LEFT FIFTH FINGER PER ER MD. DRESSING APPLIED WITH SPLINT PER DIRECTOR OF FIELD COORDINATION. PATIENT TOLERATED PROCEDURE WELL.
[2022-03-01] MEDS ORDERED: HYDR-3973 PO (18:06)
== END 2022-03-01 16:56 | disposition home or self-care (01) ==
LOC: ER 12:20
DX: S62.607A Fracture of unspecified phalanx of left little finger, initial encounter for closed fracture (principal); S61.217A Laceration without foreign body of left little finger without damage to nail, initial encounter; I25.10 Atherosclerotic heart disease of native coronary artery without angina pectoris; I25.2 Old myocardial infarction; K21.9 Gastro-esophageal reflux disease without esophagitis; G89.29 Other chronic pain; Z86.69 Personal history of other diseases of the nervous system and sense organs; Z87.01 Personal history of pneumonia (recurrent); Z86.14 Personal history of Methicillin resistant Staphylococcus aureus infection; Z72.89 Other problems related to lifestyle; Z88.1 Allergy status to other antibiotic agents; Z88.8 Allergy status to other drugs, medicaments and biological substances; Z79.82 Long term (current) use of aspirin; Z79.2 Long term (current) use of antibiotics; Z79.899 Other long term (current) drug therapy; X58.XXXA Exposure to other specified factors, initial encounter; Y93.89 Activity, other specified; Y92.89 Other specified places as the place of occurrence of the external cause; Y99.8 Other external cause status
CPT/HCPCS: 12001; 73140; 90471; 90715; 99283; J7030; A6258; A6449

== ENCOUNTER 2022-03-04 12:01 | Emergency (ER) | payer BC, MEDICAID ==
[~2022-03-04] VITALS: Ht 182.9 cm; Wt 86.0 kg
[~2022-03-04 12:01] MED LIST changes: +CEPH-585 PO; +HYDR-3973 PO
[2022-03-04] MEDS ORDERED: methylPREDNISolone sod succ 125mg/2ml vial IV ONE (12:10)
[2022-03-04] MEDS ORDERED: ipratropium/albuterol 3ml nebule NEB ONE (12:10)
[2022-03-04 12:40] LABS: BASOPHILS % (AUTO) 0.3 % (0-1); EOSINOPHILS # (AUTO) 0.2 X10'3 (0-0.9); EOSINOPHILS % (AUTO) 1.9 % (0-6); HEMOGLOBIN 14.3 g/dl (14.0-17.9); LYMPHOCYTES # (AUTO) 1.8 X10'3 (1.1-4.8); LYMPHOCYTES % (AUTO) 16.4 % (21-51); MEAN CORPUSCULAR HEMOGLOBIN 31.4 PG (27.0-31.0); MEAN CORPUSCULAR HGB CONC 33.3 g/dL (33.0-36.5); MEAN CORPUSCULAR VOLUME 94.4 FL (78-98); MEAN PLATELET VOLUME 7.2 FL (7.4-10.4); MONOCYTES # (AUTO) 1.1 X10'3 (0-0.9); MONOCYTES % (AUTO) 9.7 % (2-12); NEUTROPHILS # (AUTO) 7.9 X10'3 (1.8-7.7); NEUTROPHILS % (AUTO) 71.7 % (42-75); PLATELET COUNT 244 X10'3 (140-440); RED BLOOD COUNT 4.56 X10'6 (4.70-6.10); RED CELL DISTRIBUTION WIDTH 13.7 % (11.5-14.5)
[2022-03-04 13:15] LABS: ALANINE AMINOTRANSFERASE 27 U/L (12-78); ALBUMIN 2.8 G/DL (3.4-5.0); ALBUMIN/GLOBULIN RATIO 0.7 (1.1-1.5); ALKALINE PHOSPHATASE 70 IU/L (46-116); ANION GAP 12 (8-16); ASPARTATE AMINO TRANSFERASE 22 U/L (10-37); BILIRUBIN,TOTAL 0.6 MG/DL (0.1-1.0); BLOOD UREA NITROGEN 17 MG/DL (7-18); BUN/CREATININE RATIO 18.7 (5.4-32.0); CALCIUM 8.4 MG/DL (8.5-10.1); CHLORIDE 98 MMOL/L (99-107); CREATININE 0.91 MG/DL (0.60-1.10); GLUCOSE 126 MG/DL (70-104); POTASSIUM 3.7 MMOL/L (3.5-5.1); SODIUM 135 MMOL/L (135-145); TOTAL CARBON DIOXIDE 25.5 MMOL/L (24-32); eGFR 84 ML/MIN
[2022-03-04] MEDS ORDERED: PRED20TA PO (13:24)
[2022-03-04] MEDS ORDERED: ALBU6.7H14 INH (13:24)
[2022-03-04 14:05] VITALS: BP 114/66
== END 2022-03-04 14:09 | disposition home or self-care (01) ==
LOC: ER 12:01
DX: J45.41 Moderate persistent asthma with (acute) exacerbation (principal); F17.210 Nicotine dependence, cigarettes, uncomplicated; J44.9 Chronic obstructive pulmonary disease, unspecified; I11.9 Hypertensive heart disease without heart failure; K21.9 Gastro-esophageal reflux disease without esophagitis; G89.29 Other chronic pain; M54.9 Dorsalgia, unspecified; F41.9 Anxiety disorder, unspecified; Z88.2 Allergy status to sulfonamides; Z88.1 Allergy status to other antibiotic agents; Z79.899 Other long term (current) drug therapy; Z79.82 Long term (current) use of aspirin; Z79.1 Long term (current) use of non-steroidal anti-inflammatories (NSAID); Z79.2 Long term (current) use of antibiotics
CPT/HCPCS: 36415; 71045; 80053; 84484; 85025; 93005; 94640; 96374; 99285; J2930; 94760

== ENCOUNTER 2022-06-10 09:09 | Inpatient (IN) | payer BC, MEDICAID ==
[~2022-06-10] VITALS: Ht 185.4 cm; Wt 93.6 kg
[~2022-06-10 09:09] MED LIST changes: +ALBU6.7H14 INH; -HYDR-3973 PO
[2022-06-10] MEDS ORDERED: magnesium 2GM in 50ml NS 50 ML IV ONE (09:25)
[2022-06-10] MEDS ORDERED: CefTRIAXone 2gm/D5W 50ml BAG 50 ML IV ONE (09:25)
[2022-06-10] MEDS ORDERED: acetaminophen 325mg tablet PO STA (09:25)
[2022-06-10] MEDS ORDERED: normal saline 1000ML IV soln IV ONE (09:25)
[2022-06-10] MEDS ORDERED: albuterol 2.5 MG/3 ML nebule CONTNEB PRN (09:25)
[2022-06-10] MEDS ORDERED: methylPREDNISolone sod succ 125mg/2ml vial IV ONE (09:25)
[2022-06-10 09:47] LABS: EOSINOPHILS % (AUTO) 0 % (0-6); LYMPHOCYTES # (AUTO) 0.6 X10'3 (1.1-4.8); MONOCYTES # (AUTO) 0.8 X10'3 (0-0.9); RED CELL DISTRIBUTION WIDTH 13.7 % (11.5-14.5); WHITE BLOOD COUNT 6.9 X10'3 (4.5-11.0)
[2022-06-10 09:50] LABS: BASOPHILS % (AUTO) 0.3 % (0-1); HEMATOCRIT 44.8 % (42.0-52.0); HEMOGLOBIN 14.9 g/dl (14.0-17.9); LYMPHOCYTES % (AUTO) 9.2 % (21-51); MEAN CORPUSCULAR HEMOGLOBIN 30.7 PG (27.0-31.0); MEAN CORPUSCULAR HGB CONC 33.2 g/dL (33.0-36.5); MEAN CORPUSCULAR VOLUME 92.3 FL (78-98); MEAN PLATELET VOLUME 7.7 FL (7.4-10.4); MONOCYTES % (AUTO) 12.3 % (2-12); NEUTROPHILS # (AUTO) 5.4 X10'3 (1.8-7.7); NEUTROPHILS % (AUTO) 78.2 % (42-75); PLATELET COUNT 189 X10'3 (140-440); RED BLOOD COUNT 4.85 X10'6 (4.70-6.10)
[2022-06-10 10:10] LABS: ALANINE AMINOTRANSFERASE 62 U/L (12-78); ALBUMIN 3.3 G/DL (3.4-5.0); ALBUMIN/GLOBULIN RATIO 0.7 (1.1-1.5); ALKALINE PHOSPHATASE 92 IU/L (46-116); ANION GAP 11 (8-16); ASPARTATE AMINO TRANSFERASE 87 U/L (10-37); BILIRUBIN,TOTAL 0.5 MG/DL (0.1-1.0); BLOOD UREA NITROGEN 22 MG/DL (7-18); BUN/CREATININE RATIO 20.2 (5.4-32.0); CALCIUM 8.2 MG/DL (8.5-10.1); CHLORIDE 96 MMOL/L (99-107); CREATININE 1.09 MG/DL (0.60-1.10); GLUCOSE 101 MG/DL (70-104); MAGNESIUM 1.8 MG/DL (1.5-2.4); POTASSIUM 3.9 MMOL/L (3.5-5.1); SODIUM 131 MMOL/L (135-145); TOTAL PROTEIN 7.9 G/DL (6.4-8.2); eGFR 68 ML/MIN
[2022-06-10] MEDS ORDERED: azithromycin/NS 500mg/250ml 250 ML IV ONE (10:40)
[2022-06-10 11:23] LABS: CLARITY,URINE CLOUDY (Clear); COLOR,URINE YELLOW (Yellow); GLUCOSE, URINE NEGATIVE (Neg); KETONES,URINE 40 mg/dl (Neg); LEUKOCYTE ESTERASE ,URINE NEGATIVE (Neg); NITRITES, URINE NEGATIVE (Neg); OCCULT BLOOD,URINE SMALL (Neg); PH,URINE 5.5 (4.8-8.0); PROTEIN,URINE 30 mg/dl (Neg); UROBILINOGEN,URINE 0.2 E.U/dL (0.2-1.0)
[2022-06-10 11:24] LABS: UA COLLECTION TYPE URINAL
[2022-06-10 11:31] LABS: BACTERIA,URINE FEW /HPF (Neg); CELLULAR CAST 0-4 /LPF (NEGATIVE); RBC,URINE 0-2 /HPF (0-2); SQUAMOUS EPITHELIAL CELL,UR FEW /LPF (FEW); WBC,URINE 0-4 /HPF (0-4)
[2022-06-10 11:32] LABS: HYALINE CASTS 0-3 /LPF (NEGATIVE)
[2022-06-10 11:34] LABS: URINE AMPHETAMINE SCREEN POSITIVE (Neg); URINE BARBITUATE SCREEN NEGATIVE (Neg); URINE BENZODIAZEPINES SCREEN NEGATIVE (Neg); URINE CANNABINOID SCREEN NEGATIVE (Neg); URINE COCAINE SCREEN NEGATIVE (Neg); URINE METHADONE SCREEN NEGATIVE (Neg); URINE OPIATE SCREEN NEGATIVE (Neg); URINE PHENCYCLIDINE SCREEN NEGATIVE (Neg)
[2022-06-10] MEDS ORDERED: oseltamivir phos 75mg capsule PO ONE (13:20)
[2022-06-10] MEDS ORDERED: NO HOME MEDS (13:21)
[2022-06-10] MEDS ORDERED: HYDROcodone/acetaminophen 10/325mg tab PO PRN (14:40)
[2022-06-10] MEDS ORDERED: mag hydrox/Alum hydrox/simeth 30ml oral suspension PO PRN (14:40)
[2022-06-10] MEDS ORDERED: diphenhydrAMINE 25mg capsule PO PRN (14:40)
[2022-06-10] MEDS ORDERED: magnesium hydroxide 30ml (MOM) UD suspension PO PRN (14:40)
[2022-06-10] MEDS ORDERED: acetaminophen 650mg rectal suppository RC PRN (14:40)
[2022-06-10] MEDS ORDERED: PERFLUTREN PROTEIN-A MICROSPHR (Optison) 0.22 MG/ML 3ML VIAL IV ONE (14:40)
[2022-06-10] MEDS ORDERED: ipratropium/albuterol 3ml nebule NEB PRN (14:40)
[2022-06-10] MEDS ORDERED: acetaminophen 325mg tablet PO PRN ×2 (14:40)
[2022-06-10] MEDS ORDERED: potassium Cl 40MEQ/1/2NS 520ml 520 ML IV PRN (14:40)
[2022-06-10] MEDS ORDERED: bisacodyl 10mg suppository rectal RC PRN (14:40)
[2022-06-10] MEDS ORDERED: normal saline 1000ml 1,000 ML IV SCH (14:40)
[2022-06-10] MEDS ORDERED: ondansetron/PF 4mg/2ml inj IV PRN (14:40)
[2022-06-10] MEDS ORDERED: HYDROcodone/acetaminophen 5mg/325mg tablet PO PRN (14:40)
[2022-06-10] MEDS ORDERED: magnesium 4gm in 100ml NS 100 ML IV PRN (14:40)
[2022-06-10] MEDS ORDERED: magnesium Cl slow-release 64mg tablet PO PRN (14:40)
[2022-06-10] MEDS ORDERED: potassium Cl 20 mEq SR tablet PO PRN ×2 (14:40)
[2022-06-10] MEDS ORDERED: ipratropium/albuterol 3ml nebule NEB SCH (15:00)
[2022-06-10 15:22] LABS: HEMOGLOBIN A1C 5.8 % (4.5-6.2)
[2022-06-10 15:29] VITALS: BP 108/57
[2022-06-10] MEDS ORDERED: methylPREDNISolone sod succ 125mg/2ml vial IV SCH (16:00)
--- NOTE | 2022-06-10 16:45 | NUR ---
Message: ER BED 6 MARGOTH Simba SIGNED OUT AMA SAW PT TRYING TO LEAVE OUT AMBULANCE DOORS WITH IV. INFOMRED PT THAT HE CAN'T LEAVE WITH IV. PT STATES HE NEEDS TO LEAVE THE HOSPITAL. INFOMRED PT THAT HE IS REALLY SICK AND COULD BY SIGNING OUT AMA. PT STATES HE NEEDS TO GO. PT UNWILLING TO WAIT FOR DOCTOR. AMA PAPER SIGNED. PT AMB TO EXIT WITH STEADY GAIT. IV DCD. PT INFORMED WITH BAD PNA OR INFLUENZA HE COULD AND SHOULD WAIT. PT AGAIN STATES NEEDS TO GO
[2022-06-10] MEDS ORDERED: docusate sod 100mg capsule PO SCH (20:00)
[2022-06-10] MEDS ORDERED: heparin, porcine 5000 units/ml vial SQ SCH (20:00)
[2022-06-10] MEDS ORDERED: K and/or MAG REPLACEMENT MC SCH (20:00)
[2022-06-10] MEDS ORDERED: oseltamivir phos 75mg capsule PO SCH (20:00)
[2022-06-11] MEDS ORDERED: azithromycin 250mg tablet PO SCH (08:00)
[2022-06-11] MEDS ORDERED: CefTRIAXone/D5W-Rocephin 1gm 50 ML IV SCH (08:00)
== END 2022-06-10 17:18 | disposition left against medical advice (07) | DRG 193 ==
LOC: ER 09:09 → ED HOLD 14:41
PROVIDERS: ADMIT Family Medicine; ATTEND Family Medicine
DX: J10.1 Influenza due to other identified influenza virus with other respiratory manifestations (principal); J96.21 Acute and chronic respiratory failure with hypoxia; J44.1 Chronic obstructive pulmonary disease with (acute) exacerbation; Z20.822 Contact with and (suspected) exposure to COVID-19; I25.10 Atherosclerotic heart disease of native coronary artery without angina pectoris; F41.9 Anxiety disorder, unspecified; G89.29 Other chronic pain; K21.9 Gastro-esophageal reflux disease without esophagitis; F15.10 Other stimulant abuse, uncomplicated; M54.9 Dorsalgia, unspecified; N40.0 Benign prostatic hyperplasia without lower urinary tract symptoms; F17.210 Nicotine dependence, cigarettes, uncomplicated; Z53.29 Procedure and treatment not carried out because of patient's decision for other reasons; Z83.3 Family history of diabetes mellitus; I25.2 Old myocardial infarction; Z88.1 Allergy status to other antibiotic agents; Z88.2 Allergy status to sulfonamides; Z88.8 Allergy status to other drugs, medicaments and biological substances; Z71.6 Tobacco abuse counseling; Z71.51 Drug abuse counseling and surveillance of drug abuser
CPT/HCPCS: 36415; 71045; 80053; 80305; 81001; 83036; 83605; 83735; 83880; 84145; 84484; 85025; 87040; 87502; 87503; 87635; 93005; 94640; 94760; 96365; 96366; 96368; 96375; 99285; A4615; A7015; C9803; G0378; J0456; J0696; J2930; J3475; J7030